=== PATIENT | male | born 1975 | race Caucasian/White ===

== ENCOUNTER 2018-11-30 14:08 | Emergency (ER) | payer BC ==
[2018-11-30 14:25] VITALS: BP 127/93
[2018-11-30] MEDS ORDERED: Lidocaine 1%* 5 ML VIAL INJ ONE (14:42)
[2018-11-30] MEDS ORDERED: Tetan/Diph/Pertus SYR(Tdap)* 0.5 ML SYR(BOOSTRIX) use SYR IM ONE (14:42)
[2018-11-30] MEDS ORDERED: Lidocaine 1%* 5 ML VIAL ONE (14:45)
--- NOTE | 2018-11-30 15:15 | UC ---
Laceration HPI - HPI Summary HPI Summary: 43-year-old male comes to clinic today with a chief complaint of a laceration on the right hand between the fourth and fifth fingers. This occurred just prior to arrival while he was washing dishes. It was a chip in a glass he cut himself on. He does not believe is any foreign body. It was bleeding quite a bit. Is not concerned about infection as he was using soap. Bleeding was controlled with direct pressure. No weakness or numbness. Does not know when his last tetanus was. - History Of Current Complaint Chief Complaint: UCLaceration Stated Complaint: FINGER INJURY Time Seen by Provider: 11/30/18 14:40 Pain Intensity: 7 - Allergies/Home Medications Allergies/Adverse Reactions: Allergies Allergy/AdvReac Type Severity Reaction Status Date / Time Penicillins Allergy Intermediate Rash Verified 11/30/18 14:25 Home Medications: Home Medications Lisinopril/HCTZ 20/12.5(NF) [Zestoretic 20/12.5(NF)] 2 tab PO DAILY 11/30/18 [ History Confirmed 11/30/18] PMH/Surg Hx/FS Hx/Imm Hx Previously Healthy: Yes Cardiovascular History: Hypertension - Surgical History Surgical History: Yes Surgery Procedure, Year, and Place: appe. back biopsy - fatty tumor benign - Family History Known Family History: Positive: Other - NONCONTRIBUTORY - Social History Alcohol Use: Occasionally Substance Use Type: None Smoking Status (MU): Never Smoked Tobacco Review of Systems All Other Systems Reviewed And Are Negative: Yes Constitutional: Positive: Negative Skin: Positive: Other - SEE HPI Eyes: Positive: Negative ENT: Positive: Negative Respiratory: Positive: Negative Cardiovascular: Positive: Negative Gastrointestinal: Positive: Negative Motor: Positive: Negative Neurovascular: Positive: Negative Musculoskeletal: Positive: Negative Neurological: Positive: Negative Psychological: Positive: Negative Is Patient Immunocompromised?: No Physical Exam Triage Information Reviewed: Yes Appearance: Well-Appearing, No Pain Distress, Well-Nourished Vital Signs: Initial Vital Signs Temp 99.2 F 11/30/18 14:21 Pulse 93 11/30/18 14:21 Resp 18 11/30/18 14:21 BP 127/93 11/30/18 14:21 Pulse Ox 98 11/30/18 14:21 Vital Signs Reviewed: Yes Eye Exam: Normal Eyes: Positive: Conjunctiva Clear Neck exam: Normal Neck: Positive: Supple Respiratory: Positive: No respiratory distress Musculoskeletal Exam: Normal Musculoskeletal: Positive: Strength Intact, ROM Intact Psychological Exam: Normal Psychological: Positive: Normal Response To Family, Age Appropriate Behavior Skin: Positive: Other - 2 cm subcutaneous laceration on the right hand in the webbing between the fourth and fifth fingers. When I took the dressing off it started to bleed. No foreign body seen appears clean. Fingers have full range of motion normal capillary refill no sensation deficit. Laceration Repair - Laceration Repair 1 Description: Linear Laceration Size After Repair: Length (cm) - 2cm Contamination/FB Removal: no fb Debridement: none Modified For Repair: No Type Injection: Local Anesthesia Used: 1.0% Lido Cleansing Completed Via Routine Prep: Yes Closure Material: Sutures Closure Method: Single Layer Suture Of: Skin Suture Type: Prolene - #4, 5-0 prolene Laceration Course/Dx - Diagnosis Provider Diagnosis: Laceration of right hand Discharge - Sign-Out/Discharge Documenting (check all that apply): Patient Departure All imaging exams completed and their final reports reviewed: No Studies - Discharge Plan Condition: Stable Disposition: HOME Patient Education Materials: Care For Your Stitches (ED), Laceration (ED), Finger Laceration (ED) Referrals: Marino ROCKWELL,Skyler Arrington [Primary Care Provider] - Additional Instructions: SUTURES OUT IN 8-10 DAYS. YOU WERE GIVEN YOUR TDAP VACCINATION TODAY. FOLLOW UP WITH YOUR DOCTOR. GET RECHECKED FOR ANY WORSENING OF YOUR CONDITION; SIGNS OF INFECTION OR QUESTIONS OR CONCERNS. - Billing Disposition and Condition Condition: STABLE Disposition: Home
== END 2018-11-30 15:33 | disposition home or self-care (01) ==
LOC: UCEAST 14:08
DX: W25.XXXA Contact with sharp glass, initial encounter (principal); Y93.G1 Activity, food preparation and clean up; Y92.000 Kitchen of unspecified non-institutional (private) residence as the place of occurrence of the external cause; S61.411A Laceration without foreign body of right hand, initial encounter; Z88.0 Allergy status to penicillin; I10 Essential (primary) hypertension
CPT/HCPCS: 12001; 90715; 99211; G0463